=== PATIENT | female | born 1980 | race Caucasian/White ===

== ENCOUNTER 2016-09-16 16:06 | Emergency (ER) | payer OTHER ==
[~2016-09-16] VITALS: Ht 165.1 cm; Wt 70.3 kg
[~2016-09-16 16:06] MED LIST: BACTRIM DS TAB1 EACH PO; CARAFATE 1 GM TA1 G1 PO; IBUPROFEN 400400 M1 PO; IBUPROFEN 600600 M1 PO; KEFLEX500 MG PO; NORCO 5-325 TA1 EACH PO; PRILOSEC40 MG PO; ULTRAM 50MG TAB50 MG PO; ZOFRAN ODT4 MG PO
[2016-09-16 16:52] VITALS: BP 110/67
== END 2016-09-16 16:54 | disposition home or self-care (01) ==
LOC: ER 16:06
DX: I73.00 Raynaud's syndrome without gangrene (principal); F17.210 Nicotine dependence, cigarettes, uncomplicated; F10.99 Alcohol use, unspecified with unspecified alcohol-induced disorder